=== PATIENT | female | born 1935 | race African-American/Black ===

== ENCOUNTER 2022-03-14 12:02 | Inpatient (IN) ==
[2022-03-14] MEDS ORDERED: MAGNESIUM SULF RIDER 4 GM/100 ML PREMIX IV PRN (12:07)
[2022-03-14] MEDS ORDERED: ONDANSETRON 4 MG/2 ML VIAL IV PRN (12:07)
[2022-03-14] MEDS ORDERED: ACETAMINOPHEN 325 MG TABLET PO PRN (12:07)
[2022-03-14] MEDS ORDERED: POTASSIUM CHLORIDE 20 MEQ TABLET PO PRN (12:07)
[2022-03-14] MEDS ORDERED: MAGNESIUM SULF RIDER 2 GM/50 ML PREMIX IV PRN (12:07)
[2022-03-14] MEDS ORDERED: NITROGLYCERIN SL 0.4 MG TABLET SL PRN (12:12)
[2022-03-14] MEDS ORDERED: ALBUTEROL 2.5 MG/3 ML NEB RESP TX PRN (12:12)
[2022-03-14] MEDS ORDERED: ALBUTEROL 2.5 MG/3 ML NEB RESP TX SCH (13:00)
[2022-03-14 13:13] LABS: Basophils % 0.5 % (0.0-0.8); Eosinophils # 0.3 10*3/uL (0.0-0.87); Eosinophils % 4.3 % (0.00-10.9); Hematocrit 35.8 VOL% (35.7-47.0); Hemoglobin 10.9 GM/DL (12.0-16.0); Immature Granulocytes % 0.5 %; Immature Granulocytes Absolute 0.04 #; Lymphocytes # 2.2 10*3/uL (1.4-4.0); Mean Corpuscular HGB Conc 30.4 GM/DL (32-36); Mean Corpuscular Volume 98.9 FL (87-102); Mean Platelet Volume 10.3 FL (9.6-12.0); Monocytes # 0.9 10*3/uL (0.11-0.8); Monocytes % 11.2 % (1.7-12.7); Neutrophils % 55.5 % (38.7-73.9); Platelet Count 224 T/CUMM (130-400); Red Blood Count 3.62 MC/CUMM (3.8-5.5); Red Cell Distribution Width 14.6 % (9.3-17.3); White Blood Count 7.8 T/CUMM (4-12)
[2022-03-14 13:42] LABS: Albumin 3.4 G/DL (3.4-5.0); Bilirubin,Total 0.6 MG/DL (0.20-1.00); Calcium 9.5 MG/DL (8.5-10.1); Osmolality,Calculated 278.3 MOS/KG (273-304); Potassium 3.9 MMOL/L (3.5-5.1); Risk Ratio 3.75; Thyroid Stimulating Hormone 0.504 uIU/ml (0.358-3.74); Total Protein 7.5 G/DL (6.4-8.2); VLDL Cholesterol 16.2 MG/DL
[2022-03-14] MEDS: FUROSEMIDE 40 MG/4 ML VIAL IV SCH (15:44)
[2022-03-14] MEDS ORDERED: carvediloL 12.5 MG TABLET PO SCH (21:00)
[2022-03-14] MEDS: CYPROHEPTADINE 4 MG TABLET PO SCH (21:50)
[2022-03-14] MEDS: SIMVASTATIN 40 MG TABLET PO SCH (21:51)
[2022-03-14] MEDS: SPIRONOLACTONE 25 MG TABLET PO SCH (21:51)
[2022-03-14] MEDS: ENOXAPARIN 30 MG/0.3 ML SYRINGE SUBCUT SCH (21:51)
[2022-03-14] MEDS: carvediloL 12.5 MG TABLET PO SCH (21:52)
[2022-03-14] MEDS: DORZOLAMIDE 2% OPH SOLN 10 ML BOTTLE BOTH EYES SCH (21:53)
[2022-03-15 06:00] LABS: Calcium 9.2 MG/DL (8.5-10.1); Osmolality,Calculated 279.3 MOS/KG (273-304); Potassium 3.9 MMOL/L (3.5-5.1)
[2022-03-15] MEDS: DORZOLAMIDE 2% OPH SOLN 10 ML BOTTLE BOTH EYES SCH ×2 (09:18→21:55)
[2022-03-15] MEDS: SPIRONOLACTONE 25 MG TABLET PO SCH (09:19)
[2022-03-15] MEDS: FUROSEMIDE 40 MG/4 ML VIAL IV SCH ×2 (09:19→15:12)
[2022-03-15] MEDS: CYPROHEPTADINE 4 MG TABLET PO SCH ×2 (09:20→21:55)
[2022-03-15] MEDS: carvediloL 12.5 MG TABLET PO SCH ×2 (09:20→21:56)
[2022-03-15] MEDS: PANTOPRAZOLE 40 MG TABLET PO SCH (09:20)
[2022-03-15] MEDS: SIMVASTATIN 40 MG TABLET PO SCH (21:55)
[2022-03-15] MEDS: ENOXAPARIN 30 MG/0.3 ML SYRINGE SUBCUT SCH (21:55)
[2022-03-16] MEDS ORDERED: SPIRONOLACTONE 25 MG TABLET PO SCH (09:00)
[2022-03-16] MEDS: FUROSEMIDE 40 MG/4 ML VIAL IV SCH (10:09)
[2022-03-16] MEDS: carvediloL 12.5 MG TABLET PO SCH (10:10)
[2022-03-16] MEDS: PANTOPRAZOLE 40 MG TABLET PO SCH (10:10)
[2022-03-16] MEDS: CYPROHEPTADINE 4 MG TABLET PO SCH (10:10)
[2022-03-16] MEDS: DORZOLAMIDE 2% OPH SOLN 10 ML BOTTLE BOTH EYES SCH (10:14)
[2022-03-16 13:29] VITALS: BP 121/72
== END 2022-03-16 15:30 | disposition home or self-care (01) | DRG 291 ==
LOC: N.TELES 12:17
PROVIDERS: ADMIT Family Medicine; ATTEND Family Medicine